=== PATIENT | female | born 1960 | race Caucasian/White ===

== ENCOUNTER 2024-11-18 09:24 | Observation (INO) | payer SELFPAY ==
[2024-11-18] VITALS (14 sets, daily range): BP systolic 103–152; BP diastolic 63–87; PULSE 54–85; RESP 11–20; TEMP 36.6–36.9; O2SAT 95–99; BMI 36.6; BMI 34.5
--- NOTE | 2024-11-18 09:23 | ECG_ITS ---
APPROVED REPORT Exam: Resting ECG HR:73 bpm ECG Measurements Heart Rate 73 AXES OK 129 P 55 QRSd 85 QRS 4 QT 375 T 15 QTc 401 Conclusion SINUS RHYTHM WITH MARKED SINUS ARRHYTHMIA BORDERLINE ECG Electronically signed by : ROLY DUENAS, 11/18/2024 15:59:13
--- NOTE | 2024-11-18 09:46 | XR_ITS ---
FINAL REPORT TECHNIQUE: Single view chest CLINICAL HISTORY: CP FINDINGS: A single view of the chest was obtained. The heart and mediastinum are within normal limits. The lungs are clear. There is no pneumothorax. IMPRESSION: No acute cardiopulmonary process. Reviewed, Interpreted and Dictated by Jose Mcginnis MD Transcribed by Heather Liao Authenticated and [facility]
--- NOTE | 2024-11-18 09:47 | ED_ITS ---
Discharge Plan Disposition Patient Disposition: Admitted Referrals Follow up/Referrals: Jennifer Carrasco [Primary Care Provider, Medical] - See instructions Clinical Impressions Clinical Impression: Angina pectoris, unstable Print Language Print Language: Algerian Discharge ED Provider: Padilla Chi [facility] General Chief Complaint: Chest Pain Stated Complaint: Chest Pain Time Seen by Provider: 11/18/24 09:30 Mode of Arrival: Ambulatory Source of Information: Patient Description of Symptoms (Recalled from ER Triage Doc. by RN): patient states she has been having palpiations intermittently for 2 weeks. she also reports substernal chest pressure that started lastnight that radiates under her left breast that is also intermittent. 5/10 pain. history of SVT and ablasion History of Present Illness HPI narrative: Patient is a 64-year-old female with past medical history of SVT status post ablation remotely who presents emergency department for evaluation of chest pressure and heart fluttering. Over the last 2 weeks he has had palpitations with associated perioral tingling which is what happened when she had previous episodes of SVT but this feels different to her although it is difficult to describe. She has also had associated paroxysmal chest pressure substernal and left inframammary. Her chest pressure over the last 24 hours has become persistent causing her to become concerned and presented for continued evaluation. 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 Please note that above description of symptoms, in this electronic medical record under categorization of recalled from ER triage doctor by RN are reflective of an initial nursing assessment, however, is not reflective of my full history and physical exam that was personally taken and clarified. Consequentially, this preceding description of symptoms, which may include the patient's categorized chief complaint in the EMR, do not reflect my personal clinical impression, and the ultimate description of history of present illness and patient stated complaints should be deferred to this section of the note. Unless stated otherwise or congruent with this section of the note, additional signs, symptoms, or incongruence should be interpreted as inaccurate with my clinical impression. Related Data Allergies Allergy/AdvReac Type Severity Reaction Status Date / Time No Known Allergies Allergy Verified 11/18/24 09:38 [facility] Disclaimer: The information contained in this section may have been updated after the patient was seen, as this information can be updated by other users. Social History Smoking Status: Never smoker alcohol intake: never current occupational status: other Travel in the last 8 weeks?: None ROS Obtained: Yes Systems reviewed as appropriate & no additional complaints except as documented Physical Exam General General appearance: alert and in no apparent distress Head Head exam: atraumatic and normocephalic Eye Eye exam: Present PERRL and EOMI ENT ENT exam: Present mucous membranes moist Neck Neck exam: Present normal inspection Chest Chest inspection: Present normal inspection and symmetric chest wall rise Respiratory Respiratory exam: Present normal lung sounds bilaterally; Absent respiratory distress Cardiovascular Cardiovascular exam: Present regular rate and normal rhythm Abdominal Exam Abdominal exam: Present soft; Absent tenderness Extremities Exam Extremities exam: Present normal inspection; Absent edema Neurological Exam Neurological exam: Present alert Psychiatric Psychiatric exam: Present normal affect Skin Skin exam: Present warm and dry HEART Score HEART Score HEART Score assessment performed?: Yes History (anamnesis): Highly suspicious ECG: Non-specific disturbance Age: 45-65 years Risk factors: No known risk factors Troponin: </= normal limit HEART Score: 4 Critical Care Critical Care Time Critical Care Time: No Medical Decision Making Stefnao Inquiry Pt receiving controlled substance: No Vital Signs Vital Signs: 11/18/24 09:27 11/18/24 09:30 11/18/24 10:00 Temperature 98.4 F Temperature Source Oral Pulse Rate 64 76 Pulse Rate [Right Radial] 70 Respiratory Rate 15 11 L 20 Blood Pressure 127/77 136/81 Blood Pressure [Right Arm] 152/87 H Blood Pressure Mean 102 108 Blood Pressure Mean [Right Arm] 108 Blood Pressure Source [Right Arm] Automatic Cuff Blood Pressure Position [Right Arm] Supine 02 Sat by Pulse Oximetry 95 95 96 Oxygen Delivery Method Room Air 11/18/24 10:30 11/18/24 11:00 Temperature Temperature Source Pulse Rate 63 60 Pulse Rate [Right Radial] Respiratory Rate 16 18 Blood Pressure 108/70 L 103/66 L Blood Pressure [Right Arm] Blood Pressure Mean 84 79 Blood Pressure Mean [Right Arm] Blood Pressure Source [Right Arm] Blood Pressure Position [Right Arm] 02 Sat by Pulse Oximetry 96 95 Oxygen Delivery Method Lab Data Labs: Lab Results 11/18/24 09:30: WBC 4.6 L, RBC 4.64, Hgb 13.3, Hct 39.6, MCV 85.3, MCH 28.7, MCHC 33.6, RDW 12.8, Plt Count 189, MPV 11.0 H, Neut % (Auto) 56.0, Lymph % (Auto) 29.7, [place]oll[place] % (Auto) 11.0 H, Eos % (Auto) 2.2, Baso % (Auto) 0.9, Neut # (Auto) 2.6, Lymph # (Auto) 1.4, [place] # (Auto) 0.5, Eos # (Auto) 0.1, Baso # (Auto) 0.0, D-Dimer 0.34, Sodium 140, Potassium 4.3, Chloride 102, Carbon Dioxide 27, Anion Gap 15.3 H, BUN 29 H, Creatinine 1.10 H, Estimated Creat Clear 81, Estimated GFR 50 L, Est GFR ( Amer) 61, Glucose 93, Calcium 9.4, Total Bilirubin 0.8, AST 48 H, ALT 48, Alkaline Phosphatase 72, Troponin I < 0.01, Total Protein 7.4, Albumin 4.5, Globulin 2.9, Albumin/Globulin Ratio 1.6, Lipase 83 11/18/24 09:30 11/18/24 09:30 Response Orders (Tests/Meds): ED MEDICATIONS Generic Name Dose Route Start Last Admin Trade Name Freq PRN Reason Stop Dose Admin Acetaminophen 650 mg 11/18/24 11:01 Acetaminophen 325mg Tab PO 12/18/24 11:00 Q4HP PRN Fever or Mild Pain (1-3) Ondansetron HCl 4 mg 11/18/24 11:01 Ondansetron 4mg/2ml Vial IV 12/18/24 11:00 Q8HP PRN Nausea Pantoprazole Sodium 40 mg 11/18/24 21:00 Pantoprazole 40mg Tablet PO 12/18/24 20:59 HS CASEY Discontinued Medications Generic Name Dose Route Start Last Admin Trade Name Freq PRN Reason Stop Dose Admin Aspirin 324 mg 11/18/24 09:46 11/18/24 09:56 Aspirin 81mg Chewable Tablet PO 11/18/24 09:47 324 mg ONCE ONE Administration Morphine Sulfate 4 mg 11/18/24 09:46 11/18/24 10:04 Morphine 4mg/Ml Syringe IV 11/18/24 09:47 Not Given ONCE ONE Nitroglycerin 0.4 mg 11/18/24 09:46 11/18/24 09:56 Nitroglycerin 0.4mg Sl Tablet SL 11/18/24 09:47 0.4 mg ONCE ONE Administration Ondansetron HCl 4 mg 11/18/24 09:50 11/18/24 10:04 Ondansetron 4mg/2ml Vial IV 11/18/24 09:51 Not Given ONCE ONE ORDERS Category Date Time Status Cardiology Consult [Consult to Cardiology] [CONS] Cons 11/18/24 11:01 Active Routine CXR --portable [XR chest portable] Stat Exams 11/18/24 09:46 Completed CBC w/Auto Diff [Complete Blood Count Auto Diff] Stat Lab 11/18/24 09:30 Completed CMP [Comprehensive Metabolic Panel] Stat Lab 11/18/24 09:30 Completed Complete Blood Count Auto Diff AMLAB Lab 11/19/24 06:00 Ordered Complete Blood Count Auto Diff AMLAB Lab 11/20/24 06:00 Ordered Comprehensive Metabolic Panel AMLAB Lab 11/19/24 06:00 Ordered Comprehensive Metabolic Panel AMLAB Lab 11/20/24 06:00 Ordered D-Dimer Stat Lab 11/18/24 09:30 Completed Lipase Stat Lab 11/18/24 09:30 Completed Lipid Panel AMLAB Lab 11/19/24 06:00 Ordered Magnesium AMLAB Lab 11/19/24 06:00 Ordered Magnesium AMLAB Lab 11/20/24 06:00 Ordered Phosphorous AMLAB Lab 11/19/24 06:00 Ordered Prothrombin Time INR Routine Lab 11/18/24 11:01 Ordered Trop I [Troponin I] Stat Lab 11/18/24 09:30 Completed Troponin I Q3H Lab 11/18/24 13:00 Ordered Troponin I Q3H Lab 11/18/24 16:00 Ordered ECG Data Tracing #1: ECG Narrative: Independently interpreted by me rate is 73, rhythm is irregular, sinus arrhythmia, no ST elevation in anatomical contiguous leads, QTc 401. MDM Narrative Medical Decision Narrative: In summary patient is 64-year-old female past medical history described above presents emergency department for evaluation of chest pressure. Patient is hemodynamically stable nontoxic-appearing upon arrival, afebrile. Differential clues ACS, noncardiac chest pain, pulmonary [place], among others. Workup will be conducted with hematologic labs, chest x-ray, EKG, troponin, D-dimer. Initial inventions include aspirin, nitroglycerin, morphine, Zofran. Initial workup reviewed by me, hematologic labs are largely nonactionable no significant leukocytosis no FRANCISCO JAVIER or critical electrolyte abnormality initial troponin undetectably low D-dimer 0.34 excludes low risk aortic dissection and pulmonary embolism. The case was discussed with Dr. Chua regarding management patient is high risk for cardiac chest pain and recommends admission for continued evaluation. Case discussed with hospital medicine regarding management they will meet the patient in their service for continued evaluation at this time.
[2024-11-18 09:51] LABS: Hematocrit 39.6 % (37.0-47.0); Hemoglobin 13.3 g/dL (12.2-16.2); Immature Granulocytes % 0.2 %; Mean Corpuscular HGB Conc 33.6 g/dL (31.8-35.4); Mean Corpuscular Hemoglobin 28.7 pg (27.0-31.2); Mean Corpuscular Volume 85.3 fl (81-99); Nucleated Red Blood Cells % 0 %; Platelet Count 189 K/mm3 (142-424); Red Blood Count 4.64 M/mm3 (4.20-5.40); Red Cell Distribution Width-SD 39.8 fL; White Blood Count 4.6 K/mm3 (4.8-10.8)
[2024-11-18] MEDS: NITROGLYCERIN 0.4MG SL TABLET 0.4 MG SL (09:56)
[2024-11-18] MEDS: ASPIRIN 81MG CHEWABLE TABLET 324 MG PO (09:56)
[2024-11-18 10:03] LABS: D-Dimer 0.34 ug/mL (0.0-0.5)
--- OUTSIDE RECORDS SUMMARY | 2024-11-18 10:04 | XMS_ITS | Data Portability ---
Author Organization [facility] Address [address] [place] [address] Assessment Encounter Date Assessment Date Assessment LastModified by Organization Details LastModified Time 04/08/2024 04/08/2024 Patient refuses TDAP booster today. Not available 04/08/2024 15:14:22 04/22/2024 04/22/2024 Declines mammogram, dexa, and colon cancer screenings today. Declines vaccinations today. Not available 05/10/2024 18:39:51 Plan of Treatment Reminders Order Date Submit Date Provider Last Modified By Organization Details Last Modified Time Details Appointments None recorded. Lab vitamin D, 25-hydrox y, total, serum [facility] [place], [address], 4 12:07:51 HbA1c (hemoglob in A1c), blood [facility], [address] [place] [address], [address], 4 12:07:51 CBC w/ auto diff [facility] [place], [address], 4 12:07:49 CMP, serum or plasma CECI [facility] ([place]), [address] [facility], [place], [address], 4 12:07:50 TSH + free T4, serum BELL [facility] ([place]), [address], [place], [address], 4 12:07:49 Referral None recorded. Procedures None recorded. Surgeries None recorded. Imaging XR, forearm, 2 view [facility], [address] [place] [address], [place], [address], 4 17:02:50 Medication Orders None recorded. Patient TargetsNo targets recorded. Patient InstructionsNo instructions recorded. Reason for Referral None Reported. Results Created Date Observation Date Name Description Value Unit Range Abnormal Flag Note LastModifiedBy Organization Detail LastModifiedTime 04/22/2004/23/2024 TSH+F REE T4 TSH 15.700 uIU/m L 0.450- 4.500 above high normal Not Available [facility] ([facility]) [address] [facility], [place], [address], 04/23/2024 12:07:49 04/22/20 24 04/23/2024 TSH+F REE T4 T4,free(dire ct) 0.76 NG/dL 0.82-1 .77 below low normal Not Available [facility] ([facility]) [address] [facility], [place], [address], 04/23/2024 12:07:49 04/22/20 24 04/23/2024 CBC WITH DIFFE RENTI AL/PL ATELE T WBC 6.3 x10e3 /uL 3.4-10 .8 normal Not Available [facility] ([facility]) [address] [facility], [place], [address], 04/23/2024 12:07:49 04/22/20 24 04/23/2024 CBC WITH DIFFE RENTI AL/PL ATELE T RBC 4.60 x10e6 /uL 3.77-5 .28 normal Not Available [facility] ([facility]) [address] [facility], [place], [address], 04/23/2024 12:07:49 04/22/20 24 04/23/2024 CBC WITH DIFFE RENTI AL/PL ATELE T hemoglobin 12.8 g/dL 11.1-1 5.9 normal Not Available [facility] ([facility]) [address] [place], [address], 04/23/2024 12:07:49 04/22/2004/23/2024 CBC WITH DIFFE RENTI AL/PL ATELE T hematocrit 40.0 % 34.0-4 6.6 normal Not Available [facility] ([facility]) [address] [place], [address], 04/23/2024 12:07:49 04/22/20 24 04/23/2024 CBC WITH DIFFE RENTI AL/PL ATELE T MCV 87 fL 79-97 normal Not Available [facility] ([facility]) [address] [place], [address], 04/23/2024 12:07:49 04/22/20 24 04/23/2024 CBC WITH DIFFE RENTI AL/PL ATELE T MCH 27.8 pg 26.6-3 3.0 normal Not Available [facility] ([facility]) [address] [place], [address], 04/23/2024 12:07:49 04/22/20 24 04/23/2024 CBC WITH DIFFE RENTI AL/PL ATELE T MCHC 32.0 g/dL 31.5-3 5.7 normal Not Available [facility] ([facility]) [address] [place], [address], 04/23/2024 12:07:49 04/22/20 24 04/23/2024 CBC WITH DIFFE RENTI AL/PL ATELE T RDW 12.3 % 11.7-1 5.4 Not Available [facility] ([facility]) [address] [facility], [place], [address], 04/23/2024 12:07:49 04/22/20 24 04/23/2024 CBC WITH DIFFE RENTI AL/PL ATELE T platelets 189 x10e3 /uL 150-45 0 normal Not Available [facility] ([facility]) [address] [facility], [place], [address], 04/23/2024 12:07:49 04/22/20 24 04/23/2024 CBC WITH DIFFE RENTI AL/PL ATELE T neutrophils 62 % not estab. normal Not Available [facility] ([facility]) [address] [facility], [place], [address], 04/23/2024 12:07:49 04/22/20 24 04/23/2024 CBC WITH DIFFE RENTI AL/PL ATELE T lymphs 27 % not estab. normal Not Available [facility] ([facility]) [address] [facility], [place], [address], 04/23/2024 12:07:49 04/22/20 24 04/23/2024 CBC WITH DIFFE RENTI AL/PL ATELE T monocytes 7 % not estab. normal Not Available [facility] ([facility]) [address] [facility], [place], [address], 04/23/2024 12:07:49 04/22/20 24 04/23/2024 CBC WITH DIFFE RENTI AL/PL ATELE T eos 3 % not estab. normal Not Available [facility] ([facility]) [address] [facility], [place], [address], 04/23/2024 12:07:49 04/22/20 24 04/23/2024 CBC WITH DIFFE RENTI AL/PL ATELE T basos 1 % not estab. normal Not Available [facility] ([facility]) [address] [facility], [place], [address], 04/23/2024 12:07:49 04/22/20 24 04/23/2024 CBC WITH DIFFE RENTI AL/PL ATELE T immature cells GAMING DIRECTOR Not Available [facility] ([facility]) [address] [facility], [place], [address], 04/23/2024 12:07:49 04/22/20 24 04/23/2024 CBC WITH DIFFE RENTI AL/PL ATELE T neutrophils (absolute) 3.9 x10e3 /uL 1.4-7. 0 normal Not Available [facility] ([facility]) [address] [facility], [place], [address], 04/23/2024 12:07:49 04/22/20 24 04/23/2024 CBC WITH DIFFE RENTI AL/PL ATELE T lymphs (absolute) 1.7 x10e3 /uL 0.7-3. 1 normal Not Available [facility] ([facility]) [address] [place], [address], 04/23/2024 12:07:49 04/22/20 24 04/23/2024 CBC WITH DIFFE RENTI AL/PL ATELE T monocytes(ab solute) 0.4 x10e3 /uL 0.1-0. 9 normal Not Available [facility] ([facility]) [address] [place], [address], 04/23/2024 12:07:49 04/22/20 24 04/23/2024 CBC WITH DIFFE RENTI AL/PL ATELE T eos (absolute) 0.2 x10e3 /uL 0.0-0. 4 normal Not Available [facility] ([facility]) [address] [facility], [place], [address], 04/23/2024 12:07:49 04/22/20 24 04/23/2024 CBC WITH DIFFE RENTI AL/PL ATELE T baso (absolute) 0.0 x10e3 /uL 0.0-0. 2 normal Not Available [facility] ([facility]) [address] [facility], [place], [address], 04/23/2024 12:07:49 04/22/20 24 04/23/2024 CBC WITH DIFFE RENTI AL/PL ATELE T immature granulocytes 0 % not estab. Not Available [facility] ([facility]) [address] [facility], [place], [address], 04/23/2024 12:07:49 04/22/20 24 04/23/2024 CBC WITH DIFFE RENTI AL/PL ATELE T immature grans (abs) 0.0 x10e3 /uL 0.0-0. 1 Not Available [facility] ([facility]) [address] [facility], [place], [address], 04/23/2024 12:07:49 04/22/20 24 04/23/2024 CBC WITH DIFFE RENTI AL/PL ATELE T NRBC GAMING DIRECTOR Not Available [facility] ([facility]) [address] [facility], [place], [address], 04/23/2024 12:07:49 04/22/20 24 04/23/2024 CBC WITH DIFFE RENTI AL/PL ATELE T hematology comments: GAMING DIRECTOR Not Available [facility] ([facility]) [address] [facility], [place], [address], 04/23/2024 12:07:49 04/22/20 24 04/23/2024 COMP. METAB OLIC PANEL (14) glucose 95 mg/dL 70-99 normal Not Available [facility] ([facility]) [address] [facility], [place], [address], 04/23/2024 12:07:50 04/22/20 24 04/23/2024 COMP. METAB OLIC PANEL (14) BUN 27 mg/dL 8-27 normal Not Available [facility] ([facility]) [address] [place], [address], 04/23/2024 12:07:50 04/22/20 24 04/23/2024 COMP. METAB OLIC PANEL (14) creatinine 1.15 mg/dL 0.57-1 .00 above high normal Not Available [facility] ([facility]) [address] [place], [address], 04/23/2024 12:07:50 04/22/20 24 04/23/2024 COMP. METAB OLIC PANEL (14) eGFR 54 mL/mi n/1.7 3 >59 below low normal Not Available [facility] ([facility]) [address] [place], [address], 04/23/2024 12:07:50 04/22/20 24 04/23/2024 COMP. METAB OLIC PANEL (14) BUN/creatini ne ratio 23 12-28 normal Not Available [facility] ([facility]) [address] [place], [address], 04/23/2024 12:07:50 04/22/20 24 04/23/2024 COMP. METAB OLIC PANEL (14) sodium 142 mmol/ L 134-14 4 normal Not Available [facility] ([facility]) [address] [place], [address], 04/23/2024 12:07:50 04/22/20 24 04/23/2024 COMP. METAB OLIC PANEL (14) potassium 4.3 mmol/ L 3.5-5. 2 normal Not Available [facility] ([facility]) [address] [place], [address], 04/23/2024 12:07:50 04/22/20 24 04/23/2024 COMP. METAB OLIC PANEL (14) chloride 106 mmol/ L 96-106 normal Not Available [facility] ([facility]) [address], [place], [address], 04/23/2024 12:07:50 04/22/20 24 04/23/2024 COMP. METAB OLIC PANEL (14) carbon dioxide, total 19 mmol/ L 20-29 below low normal Not Available [facility] ([facility]) [address] [place], [address], 04/23/2024 12:07:50 04/22/20 24 04/23/2024 COMP. METAB OLIC PANEL (14) calcium 9.4 mg/dL 8.7-10 .3 normal Not Available [facility] ([facility]) [address] [place], [address], 04/23/2024 12:07:50 04/22/20 24 04/23/2024 COMP. METAB OLIC PANEL (14) protein, total 6.5 g/dL 6.0-8. 5 normal Not Available [facility] ([facility]) [address] [place], [address], 04/23/2024 12:07:50 04/22/20 24 04/23/2024 COMP. METAB OLIC PANEL (14) albumin 4.2 g/dL 3.9-4. 9 normal Not Available [facility] ([facility]) [address] [place], [address], 04/23/2024 12:07:50 04/22/20 24 04/23/2024 COMP. METAB OLIC PANEL (14) globulin, total 2.3 g/dL 1.5-4. 5 Not Available [facility] ([facility]) [address] [place], [address], 04/23/2024 12:07:50 04/22/20 24 04/23/2024 COMP. METAB OLIC PANEL (14) bilirubin, total 0.4 mg/dL 0.0-1. 2 normal Not Available [facility] ([facility]) [address] [place], [address], 04/23/2024 12:07:50 04/22/20 24 04/23/2024 COMP. METAB OLIC PANEL (14) alkaline phosphatase 87 IU/L 44-121 normal Not Available [facility]) [address] [place], [address], 04/23/2024 12:07:50 04/22/20 24 04/23/2024 COMP. METAB OLIC PANEL (14) AST (SGOT) 22 IU/L 0-40 normal Not Available [facility] ([facility]) [address] [place], [address], 04/23/2024 12:07:50 04/22/20 24 04/23/2024 COMP. METAB OLIC PANEL (14) ALT (SGPT) 18 IU/L 0-32 normal Not Available [facility] ([facility]) [address] [place], [address], 04/23/2024 12:07:50 04/22/20 24 04/23/2024 HEMOG LOBIN A1C hemoglobin A1C 6.2 % 4.8-5. 6 above high normal Predi abete s: 5.7 - 6.4 Diabe diana: >6.4 Glyce radha contr ol for adult s with diabe diana: <7.0 Not Available [facility] ([facility]) [address] [place], [address], 04/23/2024 12:07:51 04/22/20 24 04/23/2024 VITAM IN D, 25-HY DROXY vitamin D, 25-hydroxy 34.2 NG/mL 30.0-1 00.0 Vitam in D defic iency has been defin ed by the Insti tute of Medic ine and an Endoc rine Socie ty pract ice guide line as a level of serum 25-OH vitam in D less than 20 ng/mL (1,2) . The Endoc rine Socie ty went on to furth er defin e vitam in D insuf ficie ncy as a level betwe en 21 and 29 ng/mL (2). 1. IOM (Inst itute of Medic ine). 2010. Sena ry refer ence trip es for calci um and D. Dominique solis [place]: The [facility] Press . 2. Holic k MF, [place], Bisch off-F errar i MIGUEL, et al. Evalu ation , treat ment, and preve ntion of vitam in D defic iency : an Endoc rine Socie ty clini aleksandra pract ice guide line. JCEM. 2010; 96(7) :1911 -30. Not Available [facility] ([facility]) [address] [facility], [place], [address], 04/23/2024 12:07:51 04/08/20 24 XR, forea rm, 2 view No observ ation record ed. [email or web address], [address], 04/15/2024 09:51:39 Result Notes None recorded. Procedures Surgical History Date Name Laterality Status Provider Name and Address Organization Details Recorded Time catheter ablation of tissue of heart completed [facility]. 04/08/2024 15:04:40 ligation of fallopian tube completed Jennifer Carrasco, RETAIL SALES SPECIALIST [address] [place], [address], [employer] 04/22/2024 14:36:57 Imaging Results None recorded. Procedure Notes None recorded. Medical Equipment None Reported. Allergies No known drug allergies Medications Not known to be on any medication Vitals Date Recorded Body weight Body mass index (BMI) Body height Body temperature Heart rate Oxygen saturation Oxygen saturation in Arterial blood by Pulse oximetry Systolic And Diastolic Provider Name and Address Organization Details Last Updated DateTime 4 68262.1 g 30.7 kg/m2 170.18 cm 98 [degF] 65 /min 97 % 97 % 133/78 mm[Hg] [facility]. 14:58:01 Date Recorded Body height Body mass index (BMI) Body weight Body temperature Heart rate Oxygen saturation Oxygen saturation in Arterial blood by Pulse oximetry Systolic And Diastolic Provider Name and Address Organization Details Last Updated DateTime 170.18 cm 31.2 kg/m2 26178.3 2 g 98 [degF] 71 /min 96 % 96 % 118/73 mm[Hg] DIVINA WHITT [employer] 14:18:32 Social History Question Answer Notes LastModified by [employer] Details LastModified Time Tobacco Smoking Status Never Smoker DIVINA WHITT kameron [employer] 04/08/2024 14:59:45 Is Your Home Air Conditioned? Yes Information not available 04/22/2024 In The 14 Days Before Symptom Onset, Have You Had Close Contact With A Laboratory-confirm ed COVID-19 While That Case Was Ill? No Information n ot available 04/22/2024 In The 14 Days Before Symptom Onset, Have You Had Close Contact With A Person Who Is Under Investigation For COVID-19 While That Person Was Ill? No Information not available 04/22/2024 Have You Been To An Area Known To Be High Risk For COVID-19? No Information not available 04/22/2024 What Type Of Diet Are You Following? REGULAR Information n ot available 04/22/2024 What Was The Date Of Your Most Recent Tobacco Screening? 04/22/2024 Information not available 04/22/2024 Do You Use Your Seat Belt Or Car Seat Routinely? Yes Information not available 04/22/2024 Do You Have Smoke And Carbon Monoxide Detectors In Your Home? Yes Information not available 04/22/2024 Are You Passively Exposed To Smoke? No Information no t available 04/22/2024 Are There Any Smokers In Your House? No Information not available 04/22/2024 Have You Recently Traveled Abroad? No Information not available 04/22/2024 Do You Have Any Dietary Restrictions? No Information not available 04/22/2024 Sex: Female Functional Status Question Answer Note LastModified by [employer] Details LastModified Time Do you use any illicit or recreational drugs? No Information not available 04/08/2024 Do you or have you ever used any other forms of tobacco or nicotine? No Information not available 04/22/2024 What is your level of alcohol consumption? None Information not available 04/08/2024 Mental Status None recorded. Family History Nothing Reported. Medical History Condition Response Heart Problems Y Gynecological History Statement/Question Response Date of Last Pap Smear Most Recent Mammogram Obstetrics History GPAL:G 0 P 0 0 0 0 Past Encounters Encounter ID Performer Location Encounter Start Date Encounter Closed Date Diagnosis/Indication Diagnosis SNOMED-CT Code Diagnosis ICD10 Code Diagnosis Note [id number] Jennifer Carrasco [address] [address] 04/08/2024 14:46:40 04/08/2024 15:58:23 Contusion of right forearm 0186369767 [id number] S50.11XA X-ray negative for fracture. Etiology of contusion and expected duration of symptoms explained. Curlex and Popeye wrap were applied to the right forearm. Ice pack was applied. She was instructed on rest, ice, compressio n, and elevation. She may take Tylenol or ibuprofen for pain. She was instructed to keep the wound clean and dry, cleanse twice daily with soap and water, and monitor for and report any signs or symptoms of infection such as increased erythema, streaking, or purulent drainage or fevers. Injury cau sed by animal 585513420 T14.90XA Kicked by a mule Laceration of right forearm 4529688387 8818159 S51.811A Wound was cleansed with Hibiclens and sterile saline and Steri-Stri ps were applied. Body mass index 30+ - obesity 882998729 Z68.30 [id number] Jennifer Carrasco APRN [address] [address] 04/22/2024 14:05:42 04/22/2024 15:03:53 Adult health examination 862367479 Z00.00 BSE reviewed and recommende d . Reviewed calcium needs, exercise, and prevention of osteoporos is . Periodic colonoscop y screening recommende d . Reviewed normal menopause and menopausal symptoms . Mammogram recommende d yearly . Body mass index 30+ - obesity 735857175 Z68.30 Vitamin D deficiency 347 91666 E55.9 Fatigue 82216790 R53.83 Diabetes m ellitus screening 824947381 Z13.1 Health Concerns Section Related Observation LastModified by Organization [facility] LastModified Time None Recorded Concern Status LastModified by Organization Details LastModified Time None Recorded Advance Directives Directive None Recorded Payers Insurance Date Sequence Insurance Name Policy Number Policy Bonilla Covered Member ID Bonilla Member ID Guarantor Name 04/08/2024 SLIDING FEE SCHEDULE - DISCOUNT Che Lazarorebecca 04/08/2024 1 *SELF PAY* Juan dillard Lisa Notes Date Note Type Note Provider Name and Address Organization Details Recorded Time 04/08/2024 text/html Musculoskeletal PainReported bypatient.Location:rig ht arm Quality:sharp Duration:present <1 month Timing:date of onset: (today); constant; sudden Context:trauma Alleviating Factors:cold compress Associated Symptoms:no fever; no weak limbs; no tingling; no numbness of the legs/feet; no incontinence Patient presents today due to injury to right lateral forearm. She reports approximately 2 hours prior to arrival she was kicked in the midshaft of the right lateral forearm by a weanling mule. She developed immediate swelling and pain in that area of the forearm with a small superficial laceration. She applied pressure dressing and ice at home. Her Tdap is not up-to-date, and she refuses booster today. Jennifer Carrasco, RETAIL SALES SPECIALIST [address] [place], [address], [facility] [employer], [facility]. 04/12/2024 18:06:16 04/22/2024 text/html Annual WellnessReported bypatient.Diet and Nutrition:healthy diet; discussed vitamin and supplement use; discussed maintaining calcium balance; discussed diet improvement Fracture Risk:no recent explained fracture; no sudden unexplained fractures;history of fractures;previous musculoskeletal injuries Physical Activity:exercises on a regular basis; good physical condition; discussed weightbearing activities; discussed exercise habits Additional Lifestyle Factors:no tobacco use; no alcohol intake Depression Risk:never feels sad, empty, or tearful; no loss of interest in activities; no significant changes in weight; no sleep disturbances or insomnia; no agitation; no feelings of worthlessness or guilt; no thoughts of suicide; no history of depression; no history of mood disorders;loss of energy Hearing:no loss of hearing Vision:no vision problems Hx vit D deficiency. Was dx with hypothyroidism, but prefers to take a natural thyroid support herbal supplement for this. Jennifre Carrasco APRN [address] [place], [address], [facility] [employer] 05/10/2024 18:40:21 OBGyn Episode No OBEpisode recorded.
[2024-11-18 10:11] LABS: Lipase 83 U/L (23-300)
[2024-11-18 10:12] LABS: Alanine Aminotransferase 48 U/L (12-78); Albumin Level 4.5 g/dl (3.5-5.0); Albumin/Globulin Ratio 1.6 (1.1-1.8); Alkaline Phosphatase 72 U/L (38-126); Anion Gap 15.3 mEq/L (5-15); Aspartate Amino Transferase 48 U/L (14-36); Bilirubin,Total 0.8 mg/dl (0.2-1.3); Blood Urea Nitrogen 29 mg/dl (7-17); Calcium 9.4 mg/dl (8.4-10.2); Carbon Dioxide 27 mmol/L (22.0-30.0); Chloride 102 mmol/L (98-107); Creatinine Clearance Estimated 81 mL/min (50-200); Creatinine,Serum 1.10 mg/dl (0.52-1.04); Estimated Glomerular Filt Rate 50 ml/min (>60); GFR (African American) 61 ML/MIN (>60); Globulin 2.9 g/dL (1.3-3.2); Glucose 93 mg/dl (74-100); Potassium 4.3 mmoL/L (3.5-5.1); Sodium 140 mmol/L (136-145); Total Protein,Serum 7.4 g/dl (6.3-8.2)
[2024-11-18 10:19] LABS: Troponin I < 0.01 ng/ml (0.00-0.034)
--- NOTE | 2024-11-18 11:04 | PC.NURSE ---
correctional case records supervisor notified of need for bed.
--- NOTE | 2024-11-18 11:07 | CA_ITS ---
APPROVED REPORT EXAM: Comprehensive 2D, Doppler, and color-flow Echocardiogram [employer]: Mikki June RT(R) Ht: 5 ft 4 in Wt: 210lbs BSA: 2.00 BP: 136/81 mmHg Indications: chest pain, hx of ablation for SVT 2D Dimensions LVEF ([employer]) 66.70 % F: 54 - 74 LV Volume 90.90 mL F: 46 - 106 LV Volume Index 45.5 mL/m2 F: 29 - 61 LA Volume 38.50 mL LA Volume Index 19.25 mL/m2 (M/F) 16-34 EF AP4 67.60 % EF AP2 64.8 % EF BP 66.7 % GL Strain -22.5 % M-Mode Dimensions RVDd 3.13 cm (0.9-2.6) LA Diam 3.15 cm (1.9-4.0) LVDd 4.82 cm (3.5-5.7) LVDs 3.34 cm (3.5-5.7) IVSd 0.72 cm (0.6-1.1) PWd 1.00 cm (0.6-1.1) EF (Teich) 58.20% FS 30.70% EDV (Teich) 108.60 mL ESV (Teich) 45.40 mL LV Diastology E Decel Time 233 (160-240 msec) E/A Ratio 0.7 Aortic Valve MYKEL Index 1.20 cm2/m2 AoV Peak Carlitos. 139.0 (50-130 cm/s) AI PHT 785.00 ms AO Peak GR. 7.80 mmHg AO Mean GR. 3.80 (<5 mmHg) AO VTI 31.6 (18-25 cm) MYKEL (VTI) 2.45 (2.5-4.5 cm2) Mitral Valve MV E Max Carlitos. 78.0 (40-130 cm/s) MV A Velocity 109.0 (40-130 cm/s) E/A Ratio 0.71 MV PHT 68.0 ms Left Ventricle The left ventricle is normal size. The left ventricular systolic function is normal. The left ventricular ejection fraction is within the normal range. Proximal septal thickening is present. There is normal LV segmental wall motion. The left ventricular diastolic function is normal. LVEF is 55%. Right Ventricle The right ventricle is normal size. The right ventricular systolic function is normal. Atria Left atrium is mildly dilated. The right atrium size is normal. There is no Doppler evidence of interatrial shunt. Aortic Valve The aortic valve is mildly thickened. There is no aortic valvular stenosis. Mid aortic regurgitation. Mitral Valve The mitral valve is normal in structure. No evidence of mitral valve stenosis. Trace mitral regurgitation. Tricuspid Valve Tricuspid valve is grossly normal in structure and function. Trace tricuspid regurgitation. There is insufficient TR jet to estimate RVSP. Pulmonic Valve The pulmonary valve is normal in structure. Trace pulmonic regurgitation. Great Vessels The aortic root is normal in size. IVC is normal in size and collapses >50% with inspiration. Pericardium There is no pericardial effusion. Other Information Study Quality: Adequate Conclusion Normal biventricular systolic function. Mild LA dilation. Mild AI. Electronically signed by : Marii Napier MD 11/20/2024 16:01:51
[2024-11-18 11:23] LABS: INR 0.93 (0.9-1.1); Prothrombin Time 10.4 seconds (10.1-12.5)
--- NOTE | 2024-11-18 11:26 | PC.NURSE ---
GAve pt a gown and warm blanket.
[2024-11-18 13:04] LABS: Troponin I < 0.01 ng/ml (0.00-0.034)
--- NOTE | 2024-11-18 14:29 | P.HP_ITS ---
History of Present Illness *Admission Date: 11/18/24 *Reason for visit:: Unstable angina *History of present illness: Ms. Gonzalez is a 64-year-old female with a primary medical history of SVT with cardiac ablation. She denies any other medical conditions or problems that she is aware of. She does state that she does not go to the doctor very often. She presented to the emergency department today with complaints of intermittent chest pain for approximately 2 weeks. She states over the past 24 hours it has worsened, and she became worried that something was wrong. She states the pain is paroxysmal chest pressure substernally and occasionally radiating down her left side. She states the pain is worse with exertion, but she can still feel it at rest. She does states she also feels that her heart races at times, and the chest pressure is worse. Workup was done in the emergency department showing no abnormality hematologically, no leukocytosis, no FRANCISCO JAVIER, no electrolyte imbalances, serial troponins have been negative. EKG shows normal sinus rhythm. The case was discussed with Dr. Chua and recommendation for admission for further management. [facility] Disclaimer: The information contained in this section may have been updated after the patient was seen, as this information can be updated by other users. Medical History (Updated 11/18/24 @ 15:20 by Ness Phipps RN) SVT (supraventricular tachycardia) Surgical History (Updated 11/18/24 @ 15:20 by Ness Phipps RN) Previous section Social History (Updated 11/18/24 @ 11:06 by Padilla Chi MD) Smoking Status: Never smoker alcohol intake: never current occupational status: other Travel in the last 8 weeks?: None Have you lived/traveled outside [place] in past 30 days?: No Contact w/someone who lives/traveled outside [place] past 30 days?: No Exposure to someone with infectious disease in past 14 days?: No Do you have a fever (greater than 100.4 F or 38 C)?: No Have you tested positive for COVID-19?: No Exposed to someone with COVID-19 in past 14 days?: No Do you have a sore throat?: No Do you have a cough?: No Do you have any weakness?: No Do you have any diarrhea?: No Are you experiencing any unusual bleeding?: No Do you have any muscle aches/pain?: No Do you have any abdominal pain?: No Are you experiencing loss of taste or smell?: No Review of Systems Review of Systems Review of systems:: pertinent systems reviewed and negative unless documented below Constitutional Constitutional: Denies fatigue, Denies fever(s), Denies headache(s), Denies poor appetite, Denies lethargy, Denies night sweats and Denies weakness Eyes Eyes: Denies blurry vision and Denies change in vision ENT Ears, Nose, Mouth, and Throat: Reports dizziness and Denies headache(s) *Cardiovascular Cardiovascular: Reports chest pain at rest, Reports chest pain with activity, Denies dyspnea, Denies paroxysmal nocturnal dyspnea, Denies pedal edema and Reports rapid heart rate *Respiratory Respiratory: Denies cough, Denies dyspnea, Denies hemoptysis and Denies wheezing *Gastrointestinal Gastrointestinal: Denies abdominal pain, Denies bloating and Denies change in stool character *Genitourinary Genitourinary: Denies urinary incontinence *Neurologic Neurologic: Reports dizziness, Denies headache(s) and Denies weakness Endocrine Endocrine: Denies fatigue Allergic/Immunologic Allergic/Immunologic: Denies wheezing Meds Home Medications and Allergies Home Medications ?Medication ?Instructions ?Recorded ?Confirmed ?Type No Known Home Medications 11/18/24 0702/04 History New Prescriptions to Start Prescriptions: Allergies Allergy/AdvReac Type Severity Reaction Status Date / Time No Known Allergies Allergy Verified 11/18/24 09:38 Exam Data for Last 24 hours Vital signs and Labs for Last 24 Hours: Temp Pulse Resp BP Pulse Ox O2 Del Method 98.1 F 68 15 125/68 98 Room Air 11/18/24 14:14 11/18/24 14:14 11/18/24 14:14 11/18/24 14:14 11/18/24 14:06 11/18/24 14:14 Laboratory Results - last 24 hr 11/18/24 09:30: WBC 4.6 L, RBC 4.64, Hgb 13.3, Hct 39.6, MCV 85.3, MCH 28.7, MCHC 33.6, RDW 12.8, Plt Count 189, MPV 11.0 H, Neut % (Auto) 56.0, Lymph % (Auto) 29.7, [place] % (Auto) 11.0 H, Eos % (Auto) 2.2, Baso % (Auto) 0.9, Neut # (Auto) 2.6, Lymph # (Auto) 1.4, [place] # (Auto) 0.5, Eos # (Auto) 0.1, Baso # (Auto) 0.0, PT 10.4, INR 0.93, D-Dimer 0.34, Sodium 140, Potassium 4.3, Chloride 102, Carbon Dioxide 27, Anion Gap 15.3 H, BUN 29 H, Creatinine 1.10 H, Estimated Creat Clear 81, Estimated GFR 50 L, Est GFR ( Amer) 61, Glucose 93, Calcium 9.4, Total Bilirubin 0.8, AST 48 H, ALT 48, Alkaline Phosphatase 72, Troponin I < 0.01, Total Protein 7.4, Albumin 4.5, Globulin 2.9, Albumin/Globulin Ratio 1.6, Lipase 83 11/18/24 12:16: Troponin I < 0.01 I & O for Last 24 hours: Intake & Output 11/15/24 11/16/24 11/17/24 11/18/24 23:59 23:59 23:59 23:59 Weight 91.314 kg Constitutional Constitutional: no acute distress, obese and cooperative *Routine HEENT Exam Head: Present normocephalic Eye: Present EOMI and PERRL ENT: Present mucous membranes moist *Routine Neck Exam Neck: Present supple and full ROM; Absent JVD *Routine Respiratory Exam Respiratory: Present CTA bilaterally, able to speak in complete sentences and symmetric chest movement; Absent wheezes or crackles *Routine Cardiovascular Exam Cardiovascular: Present RRR, Normal S1 and Normal S2; Absent murmur *Routine Abdominal Exam Abdominal: Present soft and normoactive bowel sounds; Absent tenderness or distended *Routine Rectal Exam Rectal:: deferred *Routine Genitalia Exam Genitalia:: deferred *Routine Extremities Exam Extremities: Present full ROM and pulses intact; Absent edema *Routine Skin Exam Skin: Present intact and dry *Routine Neurological Exam Neurological: Present alert and oriented X3 Assessment and Plan *Assessment and plan (1) Angina pectoris, unstable: Status: Acute Category: Medical Code(s): I20.0 - Unstable angina (2) History of paroxysmal supraventricular tachycardia: Status: Acute Category: Medical Code(s): Z86.79 - Personal history of other diseases of the circulatory system (3) History of cardiac radiofrequency ablation: Status: Acute Category: Surgical Code(s): Z98.890 - Other specified postprocedural states Plan Ms. Gonzalez is a 64-year-old female who presented to the emergency room with intermittent chest pain x 2 weeks, worsening within the past 24 hours. She states that the pain is more like a chest pressure. She has no significant medical history with the exception of a cardiac ablation approximately 10 years ago for SVT. Patient states she has not had any other health problems since then that she is aware of. She does endorse that she does not go to the doctor very often. Initial workup in the emergency room was overall benign. No hematologic abnormalities noted. Troponins negative. EKG sinus rhythm with marked arrhythmia. Cardiology was consulted and decision was made to admit patient for further monitoring and medical management. I agreed to admit the patient to my service for further evaluation. Plan of care as follows: #Angina pectoris, unstable #History of paroxysmal SVT #History of cardiac ablation ? Patient assessment reveals that chest pressure is minimal. Stating that it is much better than it was earlier today. Patient did receive nitro 0.4 mg sublingually and aspirin 324 mg in the ER. ?Cardiology is consulted. ?CBC and CMP unremarkable. ?TSH, lipid panel pending. ?Patient started on beta-aaron metoprolol 25 mg, aspirin 81 mg, Protonix 40 mg, and Lovenox 1 mg/kg. ?I personally reviewed viewed the patient's EKG showing sinus rhythm, with marked sinus arrhythmia. Heart rate 73, KS interval 129, QRS 85. ?Vital signs remained within normal limits, blood pressure 125/68, heart rate 68. Patient afebrile 98% on room air. ?Cardiac diet, n.p.o. after midnight for possible left heart cath pending echo tomorrow. ?CMP, CBC, lipid panel, magnesium, phosphorus ordered for a.m. Full code Cardiac diet n.p.o. at midnight VTE?Lovenox Ambulate as tolerated Continuous cardiac telemetry
--- NOTE | 2024-11-18 14:34 | EXP.CARD.CON ---
History of Present Illness History of Present Illness Consult date: 11/18/24 Requesting physician: Rob Blas Chief complaint: CP History of present illness: 64-year-old white female with history of SVT status post ablation approximately 10 years ago. Has not followed up with cardiology or any medication since that time. Typically very active [place] at home without any symptoms. She denies high blood pressure high cholesterol diabetes. She smoked for approximately 10 years but quit in 1992. Her father did of an NV at approximately age 58 but was very obese at the time. Patient presented to the emergency room with complaint of 2 weeks worsening episodes of chest heaviness associated with mild tachycardia around 100 bpm which tends to be worse with activity and better with rest. Last night she had an episode at rest and came to the emergency department for evaluation. Her symptoms were significantly improved with single dose of nitroglycerin. Her first troponin is normal, EKG shows sinus rhythm without acute ischemia or ectopy. She is asymptomatic at this time. [facility] Disclaimer: The information contained in this section may have been updated after the patient was seen, as this information can be updated by other users. Medical History Leg fracture, left SVT (supraventricular tachycardia) Surgical History Previous section Social History Smoking Status: Never smoker alcohol intake: never current occupational status: other Travel in the last 8 weeks?: None Review of Systems Constitutional Constitutional: Denies fatigue and Denies weakness Eyes Eyes: Denies loss of vision ENT Ears, Nose, Mouth, and Throat: Denies hearing loss and Denies vertigo *Cardiovascular Cardiovascular: Reports chest pain, Denies dyspnea and Denies syncope *Respiratory Respiratory: Denies cough and Denies dyspnea *Gastrointestinal Gastrointestinal: Denies change in stool character, Denies nausea and Denies vomiting *Musculoskeletal Musculoskeletal: Denies muscle weakness Integumentary/Breasts Skin/Breast: Denies changing lesions *Neurologic Neurologic: Denies loss of vision, Denies syncope, Denies vertigo and Denies weakness Endocrine Endocrine: Denies fatigue Exam Data for Last 24 hours Vital signs and Labs for Last 24 Hours: Temp Pulse Resp BP Pulse Ox O2 Del Method 98.1 F 68 15 125/68 98 Room Air 11/18/24 14:14 11/18/24 14:14 11/18/24 14:14 11/18/24 14:14 11/18/24 14:06 11/18/24 14:14 Laboratory Results - last 24 hr 11/18/24 09:30: WBC 4.6 L, RBC 4.64, Hgb 13.3, Hct 39.6, MCV 85.3, MCH 28.7, MCHC 33.6, RDW 12.8, Plt Count 189, MPV 11.0 H, Neut % (Auto) 56.0, Lymph % (Auto) 29.7, [place] % (Auto) 11.0 H, Eos % (Auto) 2.2, Baso % (Auto) 0.9, Neut # (Auto) 2.6, Lymph # (Auto) 1.4, [place] # (Auto) 0.5, Eos # (Auto) 0.1, Baso # (Auto) 0.0, PT 10.4, INR 0.93, D-Dimer 0.34, Sodium 140, Potassium 4.3, Chloride 102, Carbon Dioxide 27, Anion Gap 15.3 H, BUN 29 H, Creatinine 1.10 H, Estimated Creat Clear 81, Estimated GFR 50 L, Est GFR ( Amer) 61, Glucose 93, Calcium 9.4, Total Bilirubin 0.8, AST 48 H, ALT 48, Alkaline Phosphatase 72, Troponin I < 0.01, Total Protein 7.4, Albumin 4.5, Globulin 2.9, Albumin/Globulin Ratio 1.6, Lipase 83 11/18/24 12:16: Troponin I < 0.01 I & O for Last 24 hours: Intake & Output 11/15/24 11/16/24 11/17/24 11/18/24 23:59 23:59 23:59 23:59 Weight 201 lb 5.006 oz Constitutional Constitutional: no acute distress and cooperative *Routine HEENT Exam Eye: Present PERRL *Routine Respiratory Exam Respiratory: Present CTA bilaterally; Absent accessory muscle use, wheezes or crackles *Routine Cardiovascular Exam Cardiovascular: Present RRR, Normal S1 and Normal S2; Absent murmur, gallop or rubs *Routine Abdominal Exam Abdominal: Present soft; Absent tenderness *Routine Extremities Exam Extremities: Present pulses intact; Absent cyanosis or edema *Routine Skin Exam Skin: Present intact; Absent erythema or wounds *Routine Neurological Exam Neurological: Present alert and oriented X3 Routine Psychiatric Exam Psychiatric: Present cooperative Meds Home Medications and Allergies Home Medications ?Medication ?Instructions ?Recorded ?Confirmed ?Type aspirin 81 mg tablet,delayed 81 mg PO DAILY 30 days #30 tabs 11/19/24 Rx release levothyroxine 125 mcg tablet 125 mcg PO DAILYDM 30 days #30 tabs 11/19/24 Rx (Synthroid) metoprolol succinate 25 mg 25 mg PO DAILY 30 days #30 tabs 11/19/24 Rx tablet,extended release 24 hr nitroglycerin 0.4 mg sublingual 0.4 mg sublingual Q5M PRN chest 11/19/24 Rx tablet pain #14 tabs New Prescriptions to Start Prescriptions: Jyoti Syed levothyroxine [Synthroid] Jyoti Masterson metoprolol succinate Jyoti Masterson nitroglycerin Jyoti Masterson Allergies Allergy/AdvReac Type Severity Reaction Status Date / Time No Known Allergies Allergy Verified 11/18/24 09:38 Assessment and Plan *Assessment and plan (1) History of paroxysmal supraventricular tachycardia: Status: Acute Category: Medical Code(s): Z86.79 - Personal history of other diseases of the circulatory system (2) History of cardiac radiofrequency ablation: Status: Acute Category: Surgical Code(s): Z98.890 - Other specified postprocedural states (3) Angina pectoris, unstable: Status: Acute Category: Medical Code(s): I20.0 - Unstable angina (4) Hypothyroidism: Status: Acute Category: Medical Code(s): E03.9 - Hypothyroidism, unspecified Plan Angina Pectoris - normal Trop and EKG but several RF and classic sounding angina pectoris - currently symptom free - Patient will be admitted overnight and will check 2D echo. If her echo, repeat troponin, EKG or symptoms change we will consider left heart cath this admission otherwise she will be discharged with plans for outpatient ischemic workup. Start ASA, Lovenox, BB. Check serial Trop.
[2024-11-18 14:40] LABS: Thyroid Stimulating Hormone 21.50 uIU/mL (0.465-4.68)
[2024-11-18 15:35] LABS: Free T4 (Free Thyroxine) 0.70 ng/dl (0.78-2.19)
[2024-11-18] MEDS: METOPROLOL SUCCINATE XL 25MG TABLET 25 MG PO (16:19)
[2024-11-18] MEDS: ASPIRIN EC 81MG TABLET 81 MG PO (16:19)
[2024-11-18] MEDS: LEVOTHYROXINE SODIUM 100 MCG VIAL 125 MCG IV (16:28)
[2024-11-18 17:02] LABS: Troponin I < 0.01 ng/ml (0.00-0.034)
--- NOTE | 2024-11-18 18:02 | PC.NURSE ---
Pt was a new admit from the ED. Pt A&Ox4. Vital signs stable tolerating room air. No complaints of chest pain since admission. Monitoring troponins. Pt resting comfortably in bed with no further needs voiced at this time. Call light within reach
[2024-11-18 19:39] LABS: Troponin I < 0.01 ng/ml (0.00-0.034)
[2024-11-18] MEDS: PANTOPRAZOLE 40MG TABLET 40 MG PO (20:05)
[2024-11-18 22:50] LABS: Troponin I < 0.01 ng/ml (0.00-0.034)
[2024-11-19] VITALS: BP 113/71; PULSE 59; RESP 18; TEMP 36.8; O2SAT 94
[2024-11-19 04:00] VITALS: BP 109/63; PULSE 50; PULSE 54; RESP 16; TEMP 36.6; O2SAT 96; BMI 35.0
--- NOTE | 2024-11-19 04:00 | PC.NURSE ---
Patient is alert and oriented x4. She was observed to have eyes closed, respirations even and unlabored on room air, and no apparent distress throughout the majority of the night. Patient has not had any complaints of chest pain or heart palpitations thus far this shift. Denies any dizziness, lightheadedness, and nausea. Troponin result for 22:15 was < 0.01 this shift. Official report for echo imaging still pending a provider review. Patient is eager for discharge this morning, if possible. Has no desire for leaving AMA however, remains accepting of ongoing plan of care for provider recommendations. Patient NPO since midnight per cardiology consult, was previously tolerating a cardiac diet very well. Auscultation of heart, lungs, and bowels were within normal findings. On telemetry. Scheduled medications administered as appropriately per JUL. Patient has been ambulating in her room/to the bathroom without any difficulties. No presented skin issues. At this time, the patient is resting in bed without any further complaints. No new needs thus far. Call light within reach.
--- NOTE | 2024-11-19 04:52 | PC.NURSE ---
Patient is NPO- no ice water was given, bedside table was cleaned, trash and linens emptied.
[2024-11-19 06:28] LABS: Hematocrit 41.3 % (37.0-47.0); Hemoglobin 13.5 g/dL (12.2-16.2); Immature Granulocytes % 0.2 %; Mean Corpuscular HGB Conc 32.7 g/dL (31.8-35.4); Mean Corpuscular Hemoglobin 28.3 pg (27.0-31.2); Mean Corpuscular Volume 86.6 fl (81-99); Nucleated Red Blood Cells % 0 %; Platelet Count 185 K/mm3 (142-424); Red Blood Count 4.77 M/mm3 (4.20-5.40); Red Cell Distribution Width-SD 40.5 fL; White Blood Count 5.9 K/mm3 (4.8-10.8)
[2024-11-19 06:46] LABS: Alanine Aminotransferase 43 U/L (12-78); Albumin Level 4.2 g/dl (3.5-5.0); Albumin/Globulin Ratio 1.5 (1.1-1.8); Alkaline Phosphatase 69 U/L (38-126); Anion Gap 12.4 mEq/L (5-15); Aspartate Amino Transferase 40 U/L (14-36); Bilirubin,Total 1.0 mg/dl (0.2-1.3); Blood Urea Nitrogen 27 mg/dl (7-17); Calcium 9.4 mg/dl (8.4-10.2); Carbon Dioxide 28 mmol/L (22.0-30.0); Chloride 103 mmol/L (98-107); Cholesterol 206 mg/dl (140-200); Creatinine Clearance Estimated 76 mL/min (50-200); Creatinine,Serum 1.10 mg/dl (0.52-1.04); Estimated Glomerular Filt Rate 50 ml/min (>60); GFR (African American) 61 ML/MIN (>60); Globulin 2.8 g/dL (1.3-3.2); Glucose 90 mg/dl (74-100); HDL Cholesterol 36 mg/dl (40-60); Magnesium 2.2 mg/dl (1.6-2.3); Phosphorous 4.0 mg/dl (2.5-4.5); Potassium 4.4 mmoL/L (3.5-5.1); Sodium 139 mmol/L (136-145); Total Protein,Serum 7.0 g/dl (6.3-8.2); Triglycerides 168 mg/dl (30-150)
[2024-11-19 08:00] VITALS: BP 112/63; PULSE 62; RESP 17; TEMP 36.8; O2SAT 98
[2024-11-19] MEDS: ASPIRIN EC 81MG TABLET 81 MG PO (08:58)
[2024-11-19] MEDS: LEVOTHYROXINE 125MCG (0.125MG) TAB 125 MCG PO (10:00)
--- NOTE | 2024-11-19 10:11 | P.DS_ITS ---
General Admission date:: 11/18/24 Discharge date: 11/19/24 HPI HPI HPI: Ms. Gonzalez is a 64-year-old female with a primary medical history of SVT with cardiac ablation. She denies any other medical conditions or problems that she is aware of. She does state that she does not go to the doctor very often. She presented to the emergency department today with complaints of intermittent chest pain for approximately 2 weeks. She states over the past 24 hours it has worsened, and she became worried that something was wrong. She states the pain is paroxysmal chest pressure substernally and occasionally radiating down her left side. She states the pain is worse with exertion, but she can still feel it at rest. She does states she also feels that her heart races at times, and the chest pressure is worse. Workup was done in the emergency department showing no abnormality hematologically, no leukocytosis, no FRANCISCO JAVIER, no electrolyte imbalances, serial troponins have been negative. EKG shows normal sinus rhythm. The case was discussed with Dr. Chua and recommendation for admission for further management. Hospital Course Hospital Course Hospital Course: Ms. Gonzalez is a 64-year-old female who presented to the emergency room with intermittent chest pain x 2 weeks, worsening within the past 24 hours. She stated that the pain is more like a chest pressure. She has no significant medical history with the exception of a cardiac ablation approximately 10 years ago for SVT. Patient states she has not had any other health problems since then that she is aware of. She does endorse that she does not go to the doctor very often and she has a holistic approach to health care/medicine. Initial workup in the emergency room was overall benign. No hematologic abnormalities noted. Troponins negative. EKG sinus rhythm with marked arrhythmia. Cardiology was consulted and decision was made to admit patient for further monitoring and medical management. I agreed to admit the patient to my service for further evaluation. Plan of care was as follows: #Angina pectoris, unstable #History of paroxysmal SVT #History of cardiac ablation ? Patient was admitted to the hospital for substernal chest pain, she states she has had no acute chest pain overnight. Cardiology consulted, recommends low- dose beta-aaron, daily baby aspirin at discharge, follow-up for outpatient stress test. Holding on cardiac cath at this time. Metoprolol 25 mg and aspirin 81 mg prescribed at discharge. Nitro prescribed as needed. ?Reviewed the patient's EKG showing sinus rhythm, with marked sinus arrhythmia. Heart rate 73, SD interval 129, QRS 85. #Hypothyroidism ?Patient's TSH 21.5, free T4 0.70. Patient received 1 dose of IV Synthroid 125 mcg last night, oral Synthroid 125 mcg today. Patient does endorse that she has a history of hypothyroidism and used to take Gray Thyroid. She is agreeable to taking Synthroid, and following up outpatient for further medication recommendations. Patient set up to see Dr. Rosales in [place]. Total time spent on discharge 32 minutes in counseling, documentation, chart review, and direct care with patient. Exam Data for Last 24 hours Vital signs and Labs for Last 24 Hours: Temp Pulse Resp BP Pulse Ox O2 Del Method 98.3 F 62 17 112/63 98 Room Air 11/19/24 08:00 11/19/24 08:00 11/19/24 08:00 11/19/24 08:00 11/19/24 08:00 11/19/24 08:00 Laboratory Results - last 24 hr 11/18/24 09:30: PT 10.4, INR 0.93, Sodium 140, Potassium 4.3, Chloride 102, Carbon Dioxide 27, Anion Gap 15.3 H, BUN 29 H, Creatinine 1.10 H, Estimated Creat Clear 81, Estimated GFR 50 L, Est GFR ( Amer) 61, Glucose 93, Calcium 9.4, Total Bilirubin 0.8, AST 48 H, ALT 48, Alkaline Phosphatase 72, Troponin I < 0.01, Total Protein 7.4, Albumin 4.5, Globulin 2.9, Albumin/Globulin Ratio 1.6, Lipase 83, TSH 21.50 H, Free T4 0.70 L 11/18/24 12:16: Troponin I < 0.01 11/18/24 16:20: Troponin I < 0.01 11/18/24 18:58: Troponin I < 0.01 11/18/24 22:15: Troponin I < 0.01 11/19/24 05:55: WBC 5.9 D, RBC 4.77, Hgb 13.5, Hct 41.3, MCV 86.6, MCH 28.3, MCHC 32.7, RDW 12.9, Plt Count 185, MPV 10.8 H, Neut % (Auto) 57.3, Lymph % (Auto) 28.7, [place] % (Auto) 10.1 H, Eos % (Auto) 3.0, Baso % (Auto) 0.7, Neut # (Auto) 3.4, Lymph # (Auto) 1.7, [place] # (Auto) 0.6, Eos # (Auto) 0.2, Baso # (Auto) 0.0, Sodium 139, Potassium 4.4, Chloride 103, Carbon Dioxide 28, Anion Gap 12.4, BUN 27 H, Creatinine 1.10 H, Estimated Creat Clear 76, Estimated GFR 50 L, Est GFR ( Amer) 61, Glucose 90, Calcium 9.4, Phosphorus 4.0, Magnesium 2.2, Total Bilirubin 1.0, AST 40 H, ALT 43, Alkaline Phosphatase 69, Total Protein 7.0, Albumin 4.2, Globulin 2.8, Albumin/Globulin Ratio 1.5, Triglycerides 168 H, Cholesterol 206 H, LDL Cholesterol Direct 116.81, VLDL Cholesterol 34, HDL Cholesterol 36 L, Cholesterol/HDL Ratio 5.7 H I & O for Last 24 hours: Intake & Output 11/16/24 11/17/24 11/18/24 11/19/24 23:59 23:59 23:59 23:59 Intake Total 350 / 350 Output Total 900 / 900 Balance -900 / -550 350 / 350 Weight 91.314 kg 93.168 kg Constitutional Constitutional: no acute distress and cooperative *Routine HEENT Exam Head: Present normocephalic Eye: Present EOMI and PERRL ENT: Present mucous membranes moist *Routine Neck Exam Neck: Present supple and full ROM; Absent JVD *Routine Respiratory Exam Respiratory: Present CTA bilaterally, normal respiratory effort, able to speak in complete sentences and symmetric chest movement *Routine Cardiovascular Exam Cardiovascular: Present RRR, Normal S1 and Normal S2; Absent murmur *Routine Abdominal Exam Abdominal: Present soft and normoactive bowel sounds; Absent tenderness *Routine Rectal Exam Patient deferred: visual exam *Routine Exam Patient deferred: external exam *Routine Extremities Exam Extremities: Present full ROM, pulses intact and normal capillary refill *Routine Skin Exam Skin: Present intact and dry *Routine Neurological Exam Neurological: Present alert and oriented X3 Results Data Completed and Pending Labs on day of discharge: Labs from last 24 hours 11/19/24 11/18/24 11/18/24 05:55 22:15 18:58 WBC 5.9 D RBC 4.77 Hgb 13.5 Hct 41.3 MCV 86.6 MCH 28.3 MCHC 32.7 RDW 12.9 Plt Count 185 MPV 10.8 H Neut % (Auto) 57.3 Lymph % (Auto) 28.7 [place] % (Auto) 10.1 H Eos % (Auto) 3.0 Baso % (Auto) 0.7 Neut # (Auto) 3.4 Lymph # (Auto) 1.7 [place] # (Auto) 0.6 Eos # (Auto) 0.2 Baso # (Auto) 0.0 PT INR Sodium 139 Potassium 4.4 Chloride 103 Carbon Dioxide 28 Anion Gap 12.4 BUN 27 H Creatinine 1.10 H Estimated Creat Clear 76 Estimated GFR 50 L Est GFR ( Amer) 61 Glucose 90 Calcium 9.4 Phosphorus 4.0 Magnesium 2.2 Total Bilirubin 1.0 AST 40 H ALT 43 Alkaline Phosphatase 69 Troponin I < 0.01 < 0.01 Total Protein 7.0 Albumin 4.2 Globulin 2.8 Albumin/Globulin Ratio 1.5 Triglycerides 168 H Cholesterol 206 H LDL Cholesterol Direct 116.81 VLDL Cholesterol 34 HDL Cholesterol 36 L Cholesterol/HDL Ratio 5.7 H Lipase TSH Free T4 11/18/24 11/18/24 11/18/24 16:20 12:16 09:30 WBC RBC Hgb Hct MCV MCH MCHC RDW Plt Count MPV Neut % (Auto) Lymph % (Auto) [place] % (Auto) Eos % (Auto) Baso % (Auto) Neut # (Auto) Lymph # (Auto) [place] # (Auto) Eos # (Auto) Baso # (Auto) PT 10.4 INR 0.93 Sodium 140 Potassium 4.3 Chloride 102 Carbon Dioxide 27 Anion Gap 15.3 H BUN 29 H Creatinine 1.10 H Estimated Creat Clear 81 Estimated GFR 50 L Est GFR ( Amer) 61 Glucose 93 Calcium 9.4 Phosphorus Magnesium Total Bilirubin 0.8 AST 48 H ALT 48 Alkaline Phosphatase 72 Troponin I < 0.01 < 0.01 < 0.01 Total Protein 7.4 Albumin 4.5 Globulin 2.9 Albumin/Globulin Ratio 1.6 Triglycerides Cholesterol LDL Cholesterol Direct VLDL Cholesterol HDL Cholesterol Cholesterol/HDL Ratio Lipase 83 TSH 21.50 H Free T4 0.70 L DS: Diagnosis Discharge Diagnosis (1) Angina pectoris, unstable: Status: Acute Code(s): I20.0 - Unstable angina (2) History of paroxysmal supraventricular tachycardia: Status: Acute Code(s): Z86.79 - Personal history of other diseases of the circulatory system (3) History of cardiac radiofrequency ablation: Status: Acute Code(s): Z98.890 - Other specified postprocedural states (4) Hypothyroidism: Status: Acute Code(s): E03.9 - Hypothyroidism, unspecified Meds Home Medications and Allergies Home Medications ?Medication ?Instructions ?Recorded ?Confirmed ?Type aspirin 81 mg tablet,delayed 81 mg PO DAILY 30 days #3 0 tabs 11/19/24 Rx release levothyroxine 125 mcg tablet 125 mcg PO DAILYDM 30 day s #30 tabs 11/19/24 Rx (Synthroid) metoprolol succinate 25 mg 25 mg PO DAILY 30 days #30 tabs 11/19/24 Rx tablet,extended release 24 hr nitroglycerin 0.4 mg sublingual 0.4 mg sublingual Q5M PRN chest 11/19/24 Rx tablet pain #14 tabs New Prescriptions to Start Prescriptions: aspirin Jyoti Masterson levothyroxine [Synthroid] Jyoti Masterson metoprolol succinate Jyoti Masterson nitroglycerin Jyoti Masterson Allergies Allergy/AdvReac Type Severity Reaction Status Date / Time No Known Allergies Allergy Verified 11/18/24 09:38 Discharge Plan Disposition Patient Disposition: Home, Self-Care Condition: Fair Follow up Plan Follow up with: Giancarlo Lund PA [Physician [employer], Cardiology] - 12/03/24 10:00 am Jennifer Carrasco [Primary Care Provider, Medical] - 11/25/24 3:30 pm Prescriptions/Medication Reconciliation: New aspirin 81 mg Tablet,Delayed Release (Dr/Ec) 81 mg PO DAILY 30 Days Qty: 30 0RF levothyroxine [Synthroid] 125 mcg Tablet 125 mcg PO DAILYDM 30 Days Qty: 30 0RF nitroglycerin 0.4 mg tablet, sublingual 0.4 mg sublingual Q5M PRN (Reason: chest pain) Qty: 14 0RF Rx Instructions: do not exceed 3 doses per episode metoprolol succinate 25 mg Tablet Extended Release 24 Hr 25 mg PO DAILY 30 Days Qty: 30 0RF Problem Reconciliation Problems Reviewed?: Yes Patient Discharge Instructions ACTIVITY: Continue current activity DIET: cardiac Patient Instructions: Hypothyroidism (Alternative Therapy), Hypothyroidism, DI for Chest Pain Print Language: Lithuanian Providers Primary Care Provider: Jennifer Carrasco Admit Provider: Rob Blas Attending Provider: Rob Blas
--- NOTE | 2024-11-19 14:27 | EXP.CARD.PN ---
Subjective Subjective Date: 11/19/24 Time: 09:30 Interval history: No further CP overnight. Serial Trop normal. Prelim ECHO normal. TSH found to be 21. Exam Data for Last 24 hours Vital signs and Labs for Last 24 Hours: Temp Pulse Resp BP Pulse Ox O2 Del Method 98.3 F 62 17 112/63 98 Room Air 11/19/24 08:00 11/19/24 08:00 11/19/24 08:00 11/19/24 08:00 11/19/24 08:00 11/19/24 11:00 Laboratory Results - last 24 hr 11/18/24 09:30: TSH 21.50 H, Free T4 0.70 L 11/18/24 16:20: Troponin I < 0.01 11/18/24 18:58: Troponin I < 0.01 11/18/24 22:15: Troponin I < 0.01 11/19/24 05:55: WBC 5.9 D, RBC 4.77, Hgb 13.5, Hct 41.3, MCV 86.6, MCH 28.3, MCHC 32.7, RDW 12.9, Plt Count 185, MPV 10.8 H, Neut % (Auto) 57.3, Lymph % (Auto) 28.7, Graves % (Auto) 10.1 H, Eos % (Auto) 3.0, Baso % (Auto) 0.7, Neut # (Auto) 3.4, Lymph # (Auto) 1.7, Graves # (Auto) 0.6, Eos # (Auto) 0.2, Baso # (Auto) 0.0, Sodium 139, Potassium 4.4, Chloride 103, Carbon Dioxide 28, Anion Gap 12.4, BUN 27 H, Creatinine 1.10 H, Estimated Creat Clear 76, Estimated GFR 50 L, Est GFR ( Amer) 61, Glucose 90, Calcium 9.4, Phosphorus 4.0, Magnesium 2.2, Total Bilirubin 1.0, AST 40 H, ALT 43, Alkaline Phosphatase 69, Total Protein 7.0, Albumin 4.2, Globulin 2.8, Albumin/Globulin Ratio 1.5, Triglycerides 168 H, Cholesterol 206 H, LDL Cholesterol Direct 116.81, VLDL Cholesterol 34, HDL Cholesterol 36 L, Cholesterol/HDL Ratio 5.7 H I & O for Last 24 hours: Intake & Output 11/16/24 11/17/24 11/18/24 11/19/24 23:59 23:59 23:59 23:59 Intake Total 350 / 350 Output Total 900 / 900 Balance -900 / -550 350 / 350 Weight 201 lb 5.006 oz 205 lb 6.4 oz Constitutional Constitutional: no acute distress and cooperative *Routine HEENT Exam Eye: Present PERRL *Routine Respiratory Exam Respiratory: Present CTA bilaterally; Absent accessory muscle use, wheezes or crackles *Routine Cardiovascular Exam Cardiovascular: Present RRR, Normal S1 and Normal S2; Absent murmur, gallop or rubs *Routine Abdominal Exam Abdominal: Present soft; Absent tenderness *Routine Extremities Exam Extremities: Present pulses intact; Absent cyanosis or edema *Routine Skin Exam Skin: Present intact; Absent erythema or wounds *Routine Neurological Exam Neurological: Present alert and oriented X3 Routine Psychiatric Exam Psychiatric: Present cooperative Progress Note: A&P Assessment and plan (1) Angina pectoris, unstable: Status: Acute (2) History of paroxysmal supraventricular tachycardia: Status: Acute (3) History of cardiac radiofrequency ablation: Status: Acute (4) Hypothyroidism: Status: Acute Assessment and Plan Assessment and Plan for All Diagnoses:: Angina Pectoris - symptoms resolved, nml trop x3, normal EKG, PRELIM ECHO shows normal EF and no WMA - TSH returned at 21 which may be driving symptoms but given her fam hx of premature CVD and her prior smoking hx I'd recommend she DC with ASA, BB, PRN Ntg, and f/u with us for stress testing. She is agreeable to this plan. hx SVT s/p ablation approx 10 years ago - SR here - resume BB - check OP 2 week monitor Hypothyroidism - new dx this admission, started on Levothyroxine CV stable for DC home
[2024-11-19 19:08] LABS: Hemoglobin A1C 6.9 % (4.0-6.0)
--- NOTE | 2024-11-23 11:13 | SW/DCPLANNER ---
Spoke with patient on the phone. Patient stated that she is doing alot better. Patient stated that she is aware of her upcoming appointments. Patient stated that she has no concerns or questions at this time. Patient stated that she was able to get her new medicine picked up from clinic pharmacy. Patient stated that she is not taking her beta blockers due to she cant function her daily job with them. Edu Gonzalez
== END 2024-11-19 11:23 | disposition home or self-care (01) ==
LOC: ER 10:59 → 2ND 11:24
PROVIDERS: Physician Assistant; Admitting Provider Student in an Organized Health Care Education/Training Program; Emergency Provider Emergency Medicine; PCP Nurse Practitioner Family; Visit Provider Student in an Organized Health Care Education/Training Program
DX: I20.0 Unstable angina (principal); E03.9 Hypothyroidism, unspecified; R00.0 Tachycardia, unspecified; E66.9 Obesity, unspecified; Z68.35 Body mass index [BMI] 35.0-35.9, adult; Z86.79 Personal history of other diseases of the circulatory system; Z98.890 Other specified postprocedural states
CPT/HCPCS: 36415; 71045; 80053; 80061; 83036; 83690; 83735; 84100; 84439; 84443; 84484; 85025; 85378; 85610; 93005; 93306; 96374; 99285; G0378; J0650; J1650; J2270; J2405